=== PATIENT | male | born 1945 | race Caucasian/White ===

== ENCOUNTER 2018-11-02 08:08 | Observation (INO) | payer MEDICARE, OTHER ==
[~2018-11-02] VITALS: Ht 167.6 cm; Wt 81.7 kg
[~2018-11-02 08:08] MED LIST: ACET500 PO; ALBU90OI INH; ALBU90OI61 INH; AMLO10 PO; BUDE6HFA; BUPR100ER PO; CEPH500 PO; CLON.1 PO; DABI150C PO; DILT120 PO; DILT120ERA PO; DILTIAZEM 24HR240 M1 PO; FAMO40 PO; FLUSAL115 INH; FLUSAL2505 INH; FURO20 PO; FURO40 PO; GLIP5 PO; HYDCHL12.5 PO; HYDCHL25 PO; JARDIANCE25 MG PO; K-Tab10 MEQ PO; KETO15TC; Lasix40 MG PO; Lopressor 25 mg25 MG PO; METF500 PO; METF500C; METO50 PO; MONT10T PO; POTA10T PO; POTCHL10ER PO; PRAV20 PO; RANI150 PO; SAXA2.5T PO; TIOT18; VALS80 PO; VALSARTAN-HCTZ1 EAC1 PO; WARF5 PO
[2018-11-02 09:05] LABS: BASOPHILS ABSOLUTE AUTO 0.05 K/mm3 (0.00-0.23); BASOPHILS PERCENT AUTO 1 % (0-2); EOSINOPHILS ABSOLUTE AUTO 0.15 K/mm3 (0.00-0.68); EOSINOPHILS PERCENT AUTO 2 % (0-6); Hematocrit 47.3 % (37.0-53.0); Hemoglobin 15.8 g/dL (13.5-17.5); IMMATURE GRAN ABSOLUTE AUTO 0.02 K/mm3 (0.00-0.10); IMMATURE GRAN PERCENT AUTO 0 % (0-1); LYMPHOCYTES PERCENT AUTO 19 % (21-46); MONOCYTES ABSOLUTE AUTO 0.88 K/mm3 (0.16-1.47); MONOCYTES PERCENT AUTO 10 % (4-13); Mean Corpuscular HGB 29.7 pg (26.0-34.0); Mean Corpuscular HGB Conc 33.4 g/dL (31.5-36.5); Mean Corpuscular Volume 89 fL (80-100); Mean Platelet Volume 11.9 fL (9.1-12.4); NEUTROPHILS ABSOLUTE AUTO 6.25 K/mm3 (1.96-9.15); NEUTROPHILS PERCENT AUTO 69 % (41-73); Platelet Count 222 K/mm3 (150-400); RDW Coefficient Variation 14.2 % (11.7-14.2); RDW Standard Deviation 45.8 fL (35.1-46.3); Red Blood Cell Count 5.32 M/mm3 (4.30-5.90); White Blood Cell Count 9.05 K/mm3 (4.00-11.30)
[2018-11-02 09:27] LABS: Alanine Aminotransfer (ALT/SGP 18 U/L (12-78); Albumin, Blood 3.7 g/dL (3.4-5.0); Albumin/Globulin Ratio 0.9 (0.8-1.8); Alk Phos 99 U/L (50-136); Anion Gap 6 mmol/L (6-16); Aspartate Aminotrans (AST/SGOT 12 U/L (12-37); Blood Urea Nitrogen 18 mg/dL (8-24); Bun/Creatinine Ratio 16.5 (12.0-20.0); CO2, Blood 28 mmol/L (21-32); Calcium, Blood 8.7 mg/dL (8.5-10.1); Chloride, Blood 104 mmol/L (98-108); Creatinine, Blood 1.09 mg/dL (0.60-1.20); Glomerular Filtration Rate >60 (60-); Glucose, Blood 146 mg/dL (70-99); Potassium, Blood 3.9 mmol/L (3.5-5.5); Sodium, Blood 138 mmol/L (136-145); Total Protein, Blood 7.7 g/dL (6.4-8.2); Troponin I <0.015 ng/mL (0.000-0.040)
[2018-11-02] MEDS ORDERED: AMLO10 PO (17:57)
[2018-11-02] MEDS ORDERED: ATOR20 PO (17:59)
[2018-11-02] MEDS ORDERED: TAMS.4ER PO (18:00)
[2018-11-02] MEDS ORDERED: LOSA50 PO (18:02)
[2018-11-02] MEDS ORDERED: TUDORZA PRESS400 MCG INH (18:05)
[2018-11-03 07:29] LABS: BASOPHILS ABSOLUTE AUTO 0.06 K/mm3 (0.00-0.23); BASOPHILS PERCENT AUTO 1 % (0-2); EOSINOPHILS ABSOLUTE AUTO 0.18 K/mm3 (0.00-0.68); EOSINOPHILS PERCENT AUTO 2 % (0-6); Hematocrit 47.9 % (37.0-53.0); Hemoglobin 15.5 g/dL (13.5-17.5); IMMATURE GRAN ABSOLUTE AUTO 0.04 K/mm3 (0.00-0.10); IMMATURE GRAN PERCENT AUTO 0 % (0-1); LYMPHOCYTES ABSOLUTE AUTO 1.99 K/mm3 (0.84-5.20); LYMPHOCYTES PERCENT AUTO 17 % (21-46); MONOCYTES ABSOLUTE AUTO 0.89 K/mm3 (0.16-1.47); MONOCYTES PERCENT AUTO 8 % (4-13); Mean Corpuscular HGB 29.4 pg (26.0-34.0); Mean Corpuscular HGB Conc 32.4 g/dL (31.5-36.5); Mean Corpuscular Volume 91 fL (80-100); Mean Platelet Volume 11.6 fL (9.1-12.4); NEUTROPHILS ABSOLUTE AUTO 8.53 K/mm3 (1.96-9.15); NEUTROPHILS PERCENT AUTO 73 % (41-73); Platelet Count 222 K/mm3 (150-400); RDW Coefficient Variation 14.3 % (11.7-14.2); RDW Standard Deviation 47.3 fL (35.1-46.3); Red Blood Cell Count 5.27 M/mm3 (4.30-5.90); White Blood Cell Count 11.69 K/mm3 (4.00-11.30)
[2018-11-03 08:03] LABS: Bun/Creatinine Ratio 19.5 (12.0-20.0); Calcium, Blood 8.9 mg/dL (8.5-10.1); Creatinine, Blood 1.33 mg/dL (0.60-1.20); Magnesium, Blood 2.2 mg/dL (1.6-2.4); Potassium, Blood 4.7 mmol/L (3.5-5.5)
[2018-11-03] MEDS ORDERED: LOSA50 PO (15:51)
== END 2018-11-03 16:15 | disposition home or self-care (01) ==
LOC: ER 08:08 → MEDS 08:09 → SURS 13:25
PROVIDERS: Emergency Medicine; Student in an Organized Health Care Education/Training Program
DX: R07.89 Other chest pain (principal); I48.91 Unspecified atrial fibrillation; E11.9 Type 2 diabetes mellitus without complications; I10 Essential (primary) hypertension; R20.2 Paresthesia of skin; Z79.899 Other long term (current) drug therapy; Z87.891 Personal history of nicotine dependence
CPT/HCPCS: 36415; 70450; 71046; 80048; 80053; 82947; 83690; 83735; 83880; 84443; 84484; 85025; 93005; 93010; 94640; 96374; 99285-25; A9270; J1815; J2405

== ENCOUNTER 2019-05-13 01:16 | Observation (INO) | payer MEDICARE, OTHER ==
[~2019-05-13] VITALS: Ht 172.7 cm; Wt 116.1 kg
[~2019-05-13 01:16] MED LIST changes: +ATOR20 PO; +LOSA50 PO; +LOSARTAN-HCTZ1 EACH; -METF500C; +METF500C PO; +TAMS.4ER PO; +TUDORZA PRESS400 MCG INH; +Zantac150 MG PO
[2019-05-13] MEDS ORDERED: FLUT1DIS2 INH (01:33)
[2019-05-13] MEDS ORDERED: Azor 10-40 MG1 EACH (01:34)
[2019-05-13] MEDS ORDERED: DILT120 PO (01:35)
[2019-05-13] MEDS ORDERED: BUPR100 PO (01:35)
[2019-05-13] MEDS ORDERED: ATOR10 PO (01:35)
[2019-05-13] MEDS ORDERED: TAMS.4ER PO (01:36)
[2019-05-13] MEDS ORDERED: POTA10T PO (01:37)
[2019-05-13] MEDS ORDERED: JARDIANCE25 MG PO (01:37)
[2019-05-13] MEDS ORDERED: FURO40 PO (01:37)
[2019-05-13] MEDS ORDERED: GLIP5 PO (01:37)
[2019-05-13 01:38] LABS: BASOPHILS ABSOLUTE AUTO 0.08 K/mm3 (0.00-0.23); BASOPHILS PERCENT AUTO 1 % (0-2); EOSINOPHILS ABSOLUTE AUTO 0.21 K/mm3 (0.00-0.68); EOSINOPHILS PERCENT AUTO 2 % (0-6); Hematocrit 49.7 % (37.0-53.0); Hemoglobin 16.7 g/dL (13.5-17.5); IMMATURE GRAN ABSOLUTE AUTO 0.03 K/mm3 (0.00-0.10); IMMATURE GRAN PERCENT AUTO 0 % (0-1); LYMPHOCYTES ABSOLUTE AUTO 2.31 K/mm3 (0.84-5.20); LYMPHOCYTES PERCENT AUTO 22 % (21-46); MONOCYTES ABSOLUTE AUTO 0.74 K/mm3 (0.16-1.47); MONOCYTES PERCENT AUTO 7 % (4-13); Mean Corpuscular HGB 30.8 pg (26.0-34.0); Mean Corpuscular HGB Conc 33.6 g/dL (31.5-36.5); Mean Corpuscular Volume 92 fL (80-100); NEUTROPHILS ABSOLUTE AUTO 7.01 K/mm3 (1.96-9.15); NEUTROPHILS PERCENT AUTO 68 % (41-73); RDW Coefficient Variation 13.2 % (11.7-14.2); RDW Standard Deviation 44.9 fL (35.1-46.3); Red Blood Cell Count 5.42 M/mm3 (4.30-5.90); White Blood Cell Count 10.38 K/mm3 (4.00-11.30)
[2019-05-13] MEDS ORDERED: LOSA25 PO (01:38)
[2019-05-13] MEDS ORDERED: MONT10T PO (01:38)
[2019-05-13] MEDS ORDERED: METF500 PO (01:38)
[2019-05-13] MEDS ORDERED: DABI150C PO (01:39)
[2019-05-13] MEDS ORDERED: SAXA2.5T PO (01:39)
[2019-05-13] MEDS ORDERED: ALBU90OI61 INH (01:39)
[2019-05-13] MEDS ORDERED: TUDORZA PRESS400 MCG IH (01:39)
[2019-05-13 01:42] LABS: Mean Platelet Volume 13.1 fL (9.1-12.4); Platelet Count 98 K/mm3 (150-400)
[2019-05-13 02:00] LABS: Alanine Aminotransfer (ALT/SGP 29 U/L (12-78); Albumin, Blood 3.6 g/dL (3.4-5.0); Albumin/Globulin Ratio 1.1 (0.8-1.8); Alk Phos 85 U/L (50-136); Anion Gap 8 mmol/L (6-16); Aspartate Aminotrans (AST/SGOT 40 U/L (12-37); Bilirubin, Total 1.4 mg/dL (0.1-1.0); Blood Urea Nitrogen 18 mg/dL (8-24); Bun/Creatinine Ratio 17.8 (12.0-20.0); CO2, Blood 25 mmol/L (21-32); Calcium, Blood 8.3 mg/dL (8.5-10.1); Chloride, Blood 107 mmol/L (98-108); Creatinine, Blood 1.01 mg/dL (0.60-1.20); Globulin, Blood 3.4 g/dL (2.2-4.0); Glomerular Filtration Rate >60 (60-); Glucose, Blood 122 mg/dL (70-99); Magnesium, Blood 2.2 mg/dL (1.6-2.4); Potassium, Blood 4.3 mmol/L (3.5-5.5); Sodium, Blood 140 mmol/L (136-145); Troponin I <0.015 ng/mL (0.000-0.040)
[2019-05-13 02:01] LABS: International Normalized Ratio 1.06; Prothrombin Time Results 11.2 Sec (9.7-11.5)
[2019-05-13 05:12] LABS: Hematocrit 48.2 % (37.0-53.0); Mean Corpuscular HGB 30.6 pg (26.0-34.0); Mean Corpuscular HGB Conc 33.2 g/dL (31.5-36.5); Mean Corpuscular Volume 92 fL (80-100); Mean Platelet Volume 11.6 fL (9.1-12.4); Platelet Count 200 K/mm3 (150-400); RDW Coefficient Variation 13.1 % (11.7-14.2); RDW Standard Deviation 44.8 fL (35.1-46.3); Red Blood Cell Count 5.23 M/mm3 (4.30-5.90); White Blood Cell Count 11.34 K/mm3 (4.00-11.30)
[2019-05-13 05:35] LABS: Alanine Aminotransfer (ALT/SGP 23 U/L (12-78); Albumin, Blood 3.5 g/dL (3.4-5.0); Albumin/Globulin Ratio 1.1 (0.8-1.8); Alk Phos 83 U/L (50-136); Anion Gap 6 mmol/L (6-16); Aspartate Aminotrans (AST/SGOT 17 U/L (12-37); Bilirubin, Total 1.3 mg/dL (0.1-1.0); Blood Urea Nitrogen 16 mg/dL (8-24); Bun/Creatinine Ratio 15.2 (12.0-20.0); CO2, Blood 29 mmol/L (21-32); Calcium, Blood 8.1 mg/dL (8.5-10.1); Chloride, Blood 106 mmol/L (98-108); Creatinine, Blood 1.05 mg/dL (0.60-1.20); Globulin, Blood 3.3 g/dL (2.2-4.0); Glomerular Filtration Rate >60 (60-); Glucose, Blood 178 mg/dL (70-99); Potassium, Blood 3.4 mmol/L (3.5-5.5); Sodium, Blood 141 mmol/L (136-145); Total Protein, Blood 6.8 g/dL (6.4-8.2)
--- NOTE | 2019-05-13 18:07 | NUR ---
SHIFT SUMMARY. 1220 PT ADMITTED TO MEDICAL FLOOR. A&OX4, LESLEE, GIPS EQUAL. PT REPORTS TO HAVE DECREASED SENSATION TO L HAND. OBSERVED PT WITH DECREASED DEXTERITY AND SLOWER INITIAL REACTION WITH L HAND. BLE WITHOUT DEFICIT OBSERVED. PT AMBULATES WITH SBA FOR SAFETY. FACIAL SYMETRICAL, NO DROOP. FAMILY AT BEDSIDE. PT DENIES SOB, N/V, OR PAIN.
[2019-05-14 05:02] LABS: Hematocrit 46.5 % (37.0-53.0); Hemoglobin 15.4 g/dL (13.5-17.5); Mean Corpuscular HGB 30.6 pg (26.0-34.0); Mean Corpuscular HGB Conc 33.1 g/dL (31.5-36.5); Mean Corpuscular Volume 92 fL (80-100); Mean Platelet Volume 12.2 fL (9.1-12.4); Platelet Count 186 K/mm3 (150-400); RDW Coefficient Variation 13.2 % (11.7-14.2); RDW Standard Deviation 44.8 fL (35.1-46.3); Red Blood Cell Count 5.03 M/mm3 (4.30-5.90)
[2019-05-14 05:31] LABS: Anion Gap 5 mmol/L (6-16); Blood Urea Nitrogen 19 mg/dL (8-24); Bun/Creatinine Ratio 19.2 (12.0-20.0); CHOL/HDL RATIO 3.3; CO2, Blood 29 mmol/L (21-32); Calcium, Blood 8.4 mg/dL (8.5-10.1); Chloride, Blood 107 mmol/L (98-108); Cholesterol 119 mg/dL (50-200); Creatinine, Blood 0.99 mg/dL (0.60-1.20); Glomerular Filtration Rate >60 (60-); Glucose, Blood 137 mg/dL (70-99); HDL Cholesterol 36 mg/dL (>39); LDL/HDL RATIO 1.7; Low Density Lipoprotein Chol 60 mg/dL (0-110); Potassium, Blood 3.8 mmol/L (3.5-5.5); Sodium, Blood 141 mmol/L (136-145); Triglycerides 116 mg/dL (30-160); Very Low Density Lipoprot Chol 23 mg/dL (6-32)
[2019-05-14 05:32] LABS: BASOPHILS PERCENT MAN 0 % (0-2); EOSINOPHILS ABSOLUTE MAN 0.17 K/mm3 (0.00-0.68); EOSINOPHILS PERCENT MAN 2 % (0-6); LYMPHOCYTES ABSOLUTE MAN 1.89 K/mm3 (0.84-5.20); LYMPHOCYTES PERCENT MAN 22 % (21-46); MONOCYTES ABSOLUTE MAN 0.86 K/mm3 (0.16-1.47); MONOCYTES PERCENT MAN 10 % (4-13); NEUTROPHILS ABSOLUTE MAN 5.67 K/mm3 (1.96-9.15); SEG NEUTROPHILS PERCENT MAN 66 % (41-73); TOTAL CELLS COUNTED 100
--- NOTE | 2019-05-14 05:42 | NUR ---
SHIFT SUMMARY PT SLEPT WELL T/O NIGHT. AOX4. VSS. REPORTS SHARP 8-10/10 R LEG PAIN THAT IS IRRITATED W/WALKING, MEDICATED 2X W/TYLENOL & APPLIED HEAT PAD. DENIES N/V/D OR SOB. 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 SBA W/AMBULATION. 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 CALL LIGHT IN REACH & I WILL CONTINUE TO MONITOR.
[2019-05-14] MEDS ORDERED: ASPI325 PO (13:53)
[2019-05-14] MEDS ORDERED: AMLO10 PO (13:54)
[2019-05-14] MEDS ORDERED: Norco 5-325 Ta1 EACH PO (13:54)
[2019-05-14] MEDS ORDERED: LOSARTAN-HCTZ1 EACH PO (13:55)
--- NOTE | 2019-05-14 15:05 | NUR ---
DISCHARGE DISCHARGE MEDICATIONS AND INSTRUCTIONS EXPLAINED TO PATIENT. PATIENT STATED UNDERSTANDING. IV REMOVED WITHOUT DIFFICULTY. BELONGINGS WITH PATIENT. PATIENT TRANSFERRED TO PRIVATE VEHICLE VIA WHEELCHAIR.
--- NOTE | 2019-05-21 13:52 | NUR ---
ON 05/13/19 THIS RN MISTAKENLY PUT THE WR[facility] PHYSICIAN PNEUMONIC FOR A TRAY NOW ORDER. THE CORRECT PHYSICIAN WOULD HAVE BEEN DR. MORALES, NOT DR. CATALAN.
== END 2019-05-14 15:08 | disposition home or self-care (01) ==
LOC: ER 01:16 → ERHOLD 01:17 → MEDS 12:21
PROVIDERS: Emergency Medicine; Family Medicine; ADMIT Internal Medicine
DX: I63.9 Cerebral infarction, unspecified (principal); I35.1 Nonrheumatic aortic (valve) insufficiency; M51.16 Intervertebral disc disorders with radiculopathy, lumbar region; D69.6 Thrombocytopenia, unspecified; I11.0 Hypertensive heart disease with heart failure; I50.9 Heart failure, unspecified; E11.9 Type 2 diabetes mellitus without complications; I48.91 Unspecified atrial fibrillation; J44.9 Chronic obstructive pulmonary disease, unspecified; F17.200 Nicotine dependence, unspecified, uncomplicated; Z79.899 Other long term (current) drug therapy; Z79.84 Long term (current) use of oral hypoglycemic drugs
CPT/HCPCS: 36415; 70450; 70496; 70498; 80048; 80053; 80061; 82947; 83735; 84484; 85007; 85025; 85027; 85610; 85730; 93005; 93010; 93306; 96361; 96374-59; 99285-25; A9270; A9270-GY; G0378; G0480; J2405; J7030; Q9967

== ENCOUNTER → 2019-10-09 | Outpatient (CLI) | payer MEDICARE, OTHER ==
[~2019-10-09] MED LIST changes: +ASPI325 PO; +ATOR10 PO; +Azor 10-40 MG1 EACH; +BUPR100 PO; +FLUT1DIS2 INH; +LOSA25 PO; +LOSARTAN-HCTZ1 EACH PO; +Norco 5-325 Ta1 EACH PO; +TUDORZA PRESS400 MCG IH
[2019-10-09 12:06] LABS: BASOPHILS ABSOLUTE AUTO 0.06 K/mm3 (0.00-0.23); BASOPHILS PERCENT AUTO 1 % (0-2); EOSINOPHILS ABSOLUTE AUTO 0.12 K/mm3 (0.00-0.68); EOSINOPHILS PERCENT AUTO 2 % (0-6); Hematocrit 44.4 % (37.0-53.0); Hemoglobin 14.6 g/dL (13.5-17.5); IMMATURE GRAN ABSOLUTE AUTO 0.02 K/mm3 (0.00-0.10); IMMATURE GRAN PERCENT AUTO 0 % (0-1); LYMPHOCYTES ABSOLUTE AUTO 1.53 K/mm3 (0.84-5.20); LYMPHOCYTES PERCENT AUTO 20 % (21-46); MONOCYTES ABSOLUTE AUTO 0.55 K/mm3 (0.16-1.47); MONOCYTES PERCENT AUTO 7 % (4-13); Mean Corpuscular HGB 30.1 pg (26.0-34.0); Mean Corpuscular HGB Conc 32.9 g/dL (31.5-36.5); Mean Corpuscular Volume 92 fL (80-100); Mean Platelet Volume 12.2 fL (9.1-12.4); NEUTROPHILS PERCENT AUTO 70 % (41-73); Platelet Count 202 K/mm3 (150-400); RDW Coefficient Variation 13.2 % (11.7-14.2); RDW Standard Deviation 44.3 fL (35.1-46.3); Red Blood Cell Count 4.85 M/mm3 (4.30-5.90); White Blood Cell Count 7.68 K/mm3 (4.00-11.30)
[2019-10-09 12:24] LABS: Alanine Aminotransfer (ALT/SGP 20 U/L (12-78); Albumin, Blood 3.4 g/dL (3.4-5.0); Albumin/Globulin Ratio 0.9 (0.8-1.8); Alk Phos 92 U/L (40-126); Anion Gap 8 mmol/L (6-16); Aspartate Aminotrans (AST/SGOT 13 U/L (12-37); Bilirubin, Total 1.1 mg/dL (0.1-1.0); Blood Urea Nitrogen 21 mg/dL (8-24); Bun/Creatinine Ratio 13.6 (12.0-20.0); CO2, Blood 30 mmol/L (21-32); Calcium, Blood 8.5 mg/dL (8.5-10.1); Chloride, Blood 103 mmol/L (98-108); Creatinine, Blood 1.54 mg/dL (0.60-1.20); Globulin, Blood 3.6 g/dL (2.2-4.0); Glomerular Filtration Rate 45 (60-); Glucose, Blood 250 mg/dL (70-99); Potassium, Blood 3.9 mmol/L (3.5-5.5); Sodium, Blood 141 mmol/L (136-145)
[2019-10-09 12:25] LABS: Troponin I <0.017 ng/mL (0.000-0.040)
== END ==
LOC: LAB SHORT 12:01 → LAB EV 12:01
PROVIDERS: Physician Assistant
DX: R07.9 Chest pain, unspecified (principal); R53.83 Other fatigue
CPT/HCPCS: 80053; 84484; 85025; 85379

== ENCOUNTER → 2020-01-07 | Outpatient (CLI) | payer MEDICARE, OTHER ==
[~2020-01-07] MED LIST changes: +HYDR1TAB94 PO; +IRBESARTAN-HCT1 EAC1 PO; +ONDA4ODT MM
[2020-01-07 18:34] LABS: BASOPHILS ABSOLUTE AUTO 0.06 K/mm3 (0.00-0.23); BASOPHILS PERCENT AUTO 0 % (0-2); EOSINOPHILS ABSOLUTE AUTO 0.08 K/mm3 (0.00-0.68); EOSINOPHILS PERCENT AUTO 1 % (0-6); Hematocrit 46.3 % (37.0-53.0); Hemoglobin 15.5 g/dL (13.5-17.5); IMMATURE GRAN ABSOLUTE AUTO 0.05 K/mm3 (0.00-0.10); IMMATURE GRAN PERCENT AUTO 0 % (0-1); LYMPHOCYTES ABSOLUTE AUTO 1.07 K/mm3 (0.84-5.20); LYMPHOCYTES PERCENT AUTO 7 % (21-46); MONOCYTES ABSOLUTE AUTO 1.01 K/mm3 (0.16-1.47); MONOCYTES PERCENT AUTO 7 % (4-13); Mean Corpuscular HGB Conc 33.5 g/dL (31.5-36.5); Mean Corpuscular Volume 90 fL (80-100); Mean Platelet Volume 12.3 fL (9.1-12.4); NEUTROPHILS ABSOLUTE AUTO 12.24 K/mm3 (1.96-9.15); NEUTROPHILS PERCENT AUTO 84 % (41-73); Platelet Count 165 K/mm3 (150-400); RDW Coefficient Variation 13.7 % (11.7-14.2); RDW Standard Deviation 45.3 fL (35.1-46.3); Red Blood Cell Count 5.16 M/mm3 (4.30-5.90); White Blood Cell Count 14.51 K/mm3 (4.00-11.30)
[2020-01-07 18:46] LABS: Alanine Aminotransfer (ALT/SGP 25 U/L (12-78); Albumin, Blood 3.3 g/dL (3.4-5.0); Albumin/Globulin Ratio 0.9 (0.8-1.8); Alk Phos 113 U/L (40-126); Anion Gap 8 mmol/L (6-16); Aspartate Aminotrans (AST/SGOT 20 U/L (12-37); Blood Urea Nitrogen 13 mg/dL (8-24); Bun/Creatinine Ratio 11.6 (12.0-20.0); CO2, Blood 29 mmol/L (21-32); Calcium, Blood 8.7 mg/dL (8.5-10.1); Chloride, Blood 102 mmol/L (98-108); Creatinine, Blood 1.12 mg/dL (0.60-1.20); Globulin, Blood 3.7 g/dL (2.2-4.0); Glomerular Filtration Rate >60 (60-); Glucose, Blood 368 mg/dL (70-99); Sodium, Blood 139 mmol/L (136-145)
== END | disposition home or self-care (01) ==
LOC: LAB EV 18:30 → LAB SHORT 18:30
PROVIDERS: Physician Assistant
DX: R10.9 Unspecified abdominal pain (principal)
CPT/HCPCS: 80053; 83690; 85025

== ENCOUNTER 2020-01-10 14:24 | Emergency (ER) | payer MEDICARE, OTHER ==
[~2020-01-10] VITALS: Ht 177.8 cm; Wt 115.7 kg
[~2020-01-10 14:24] MED LIST changes: -HYDR1TAB94 PO
[2020-01-10 15:09] LABS: BASOPHILS ABSOLUTE AUTO 0.03 K/mm3 (0.00-0.23); BASOPHILS PERCENT AUTO 0 % (0-2); EOSINOPHILS PERCENT AUTO 1 % (0-6); Hematocrit 44.5 % (37.0-53.0); Hemoglobin 14.6 g/dL (13.5-17.5); IMMATURE GRAN ABSOLUTE AUTO 0.03 K/mm3 (0.00-0.10); IMMATURE GRAN PERCENT AUTO 0 % (0-1); LYMPHOCYTES ABSOLUTE AUTO 1.35 K/mm3 (0.84-5.20); LYMPHOCYTES PERCENT AUTO 12 % (21-46); MONOCYTES ABSOLUTE AUTO 0.73 K/mm3 (0.16-1.47); MONOCYTES PERCENT AUTO 6 % (4-13); Mean Corpuscular HGB 29.8 pg (26.0-34.0); Mean Corpuscular HGB Conc 32.8 g/dL (31.5-36.5); Mean Corpuscular Volume 91 fL (80-100); Mean Platelet Volume 12.3 fL (9.1-12.4); NEUTROPHILS ABSOLUTE AUTO 9.39 K/mm3 (1.96-9.15); NEUTROPHILS PERCENT AUTO 81 % (41-73); Platelet Count 151 K/mm3 (150-400); RDW Coefficient Variation 13.5 % (11.7-14.2); RDW Standard Deviation 45.3 fL (35.1-46.3); White Blood Cell Count 11.63 K/mm3 (4.00-11.30)
[2020-01-10 15:28] LABS: Alanine Aminotransfer (ALT/SGP 20 U/L (12-78); Albumin, Blood 3.1 g/dL (3.4-5.0); Albumin/Globulin Ratio 0.9 (0.8-1.8); Alk Phos 99 U/L (50-136); Anion Gap 5 mmol/L (6-16); Aspartate Aminotrans (AST/SGOT 14 U/L (12-37); Bilirubin, Total 1.4 mg/dL (0.1-1.0); Blood Urea Nitrogen 16 mg/dL (8-24); Bun/Creatinine Ratio 17.2 (12.0-20.0); CO2, Blood 30 mmol/L (21-32); Calcium, Blood 8.5 mg/dL (8.5-10.1); Chloride, Blood 103 mmol/L (98-108); Creatinine, Blood 0.93 mg/dL (0.60-1.20); Globulin, Blood 3.6 g/dL (2.2-4.0); Glomerular Filtration Rate >60 (60-); Glucose, Blood 233 mg/dL (70-99); Potassium, Blood 3.7 mmol/L (3.5-5.5); Sodium, Blood 138 mmol/L (136-145); Total Protein, Blood 6.7 g/dL (6.4-8.2)
[2020-01-10 17:24] LABS: Source, Urine Clean Catch
[2020-01-10 17:29] LABS: Bilirubin, Urine Neg (Neg); Blood, Urine Neg (Neg); Glucose Qualitative, Urine 2+ (Neg); Ketones, Urine Neg (Neg); Leukocyte Esterase, Urine 1+ (Neg); Nitrite, Urine Neg (Neg); Protein, Urine 2+ (Neg); Urobilinogen, Urine NORM (Normal)
[2020-01-10 17:37] LABS: Appearance, Urine Clear (Clear); Color, Urine Yellow (P-Yellow)
[2020-01-10 17:38] LABS: Bacteria Rare /hpf; Hyaline Casts 0-2 /lpf (0-2); Red Blood Cells, Urine 0-2 /hpf (0-2); Squamous Epithelial Cells Few /hpf (Few)
[2020-01-10] MEDS ORDERED: HYDR1TAB94 PO (17:51)
== END 2020-01-10 18:15 | disposition home or self-care (01) ==
LOC: ER 14:24
PROVIDERS: Physician Assistant
DX: D73.5 Infarction of spleen (principal); I11.0 Hypertensive heart disease with heart failure; I50.9 Heart failure, unspecified; I48.91 Unspecified atrial fibrillation; E11.9 Type 2 diabetes mellitus without complications; E78.5 Hyperlipidemia, unspecified; J45.909 Unspecified asthma, uncomplicated; Z79.84 Long term (current) use of oral hypoglycemic drugs; Z79.82 Long term (current) use of aspirin; Z79.899 Other long term (current) drug therapy; Z79.51 Long term (current) use of inhaled steroids; Z87.891 Personal history of nicotine dependence
CPT/HCPCS: 36415; 74177; 80053; 81001; 83690; 85025; 87086; 93005; 93010; 99284-25; Q9967

== ENCOUNTER 2020-07-09 12:12 | Day surgery (SDC) | payer MEDICARE, OTHER ==
[~2020-07-09] VITALS: Ht 177.8 cm; Wt 112.3 kg
[~2020-07-09 12:12] MED LIST changes: +DILTIAZEM 24HR240 M4 PO; +DOCU100 PO; +ELIQUIS5 MG PO; +FLUT1DIS8 INH; +GLIP5ER PO; +GLUCOPHAGE1000 M1 PO; +HYDR1TAB94 PO; +IRBESARTAN-HCT1 EAC2 PO; +Klor-Con 1010 MEQ PO; +OMEP20ER PO; +ONGLYZA5 MG PO; +PROAIR DIGIHAL90 MCG; +TIOT18 INH
[2020-07-09] MEDS ORDERED: DABI150C (13:00)
== END 2020-07-09 14:48 | disposition home or self-care (01) ==
LOC: ORSCSDS 12:12
PROVIDERS: Student in an Organized Health Care Education/Training Program
PROC: 0DB98ZX Excision of Duodenum, Via Natural or Artificial Opening Endoscopic, Diagnostic (ICD-10-PCS; principal; 2020-07-09 13:30)
PROC: 0DBN8ZX Excision of Sigmoid Colon, Via Natural or Artificial Opening Endoscopic, Diagnostic (ICD-10-PCS; principal; 2020-07-09 13:30)
PROC: 0DB68ZX Excision of Stomach, Via Natural or Artificial Opening Endoscopic, Diagnostic (ICD-10-PCS; principal; 2020-07-09 13:30)
PROC: 0DBK8ZX Excision of Ascending Colon, Via Natural or Artificial Opening Endoscopic, Diagnostic (ICD-10-PCS; principal; 2020-07-09 13:30)
PROC: 0DBL8ZX Excision of Transverse Colon, Via Natural or Artificial Opening Endoscopic, Diagnostic (ICD-10-PCS; principal; 2020-07-09 13:30)
DX: K74.60 Unspecified cirrhosis of liver (principal); R19.5 Other fecal abnormalities; R15.0 Incomplete defecation; K31.7 Polyp of stomach and duodenum; K22.70 Barrett's esophagus without dysplasia; D12.2 Benign neoplasm of ascending colon; D12.3 Benign neoplasm of transverse colon; K63.5 Polyp of colon; K31.819 Angiodysplasia of stomach and duodenum without bleeding; Z86.010 Personal history of colon polyps; K29.70 Gastritis, unspecified, without bleeding; K57.30 Diverticulosis of large intestine without perforation or abscess without bleeding; K64.8 Other hemorrhoids; I10 Essential (primary) hypertension; I48.91 Unspecified atrial fibrillation; Z79.01 Long term (current) use of anticoagulants; J44.9 Chronic obstructive pulmonary disease, unspecified; G47.33 Obstructive sleep apnea (adult) (pediatric); Z87.891 Personal history of nicotine dependence; E11.9 Type 2 diabetes mellitus without complications; Z99.81 Dependence on supplemental oxygen; Z86.73 Personal history of transient ischemic attack (TIA), and cerebral infarction without residual deficits; Z79.899 Other long term (current) drug therapy; Z79.84 Long term (current) use of oral hypoglycemic drugs
CPT/HCPCS: 82947; 88305; 88341; 88342; J2704; J7120

== ENCOUNTER 2022-03-14 12:07 | Day surgery (SDC) | payer MEDICARE, OTHER ==
[~2022-03-14] VITALS: Ht 177.8 cm; Wt 101.4 kg
[~2022-03-14 12:07] MED LIST changes: +AVALIDE 300-121 EACH PO; +CHLO25B PO; +DABI150C; +ELIQUIS5 M2 PO; +GABA100 PO; +Isosorbide Mono30 MG PO; +METO25ER PO; +MINIPRESS2 M1 PO; +PEPCID40 MG PO; -PROAIR DIGIHAL90 MCG; +PROAIR DIGIHAL90 MCG INH; +SYMBICORT 80-10.2 GM INH; +ZESTRIL40 M1 PO
== END 2022-03-14 14:04 | disposition home or self-care (01) ==
LOC: ORSCSDS 12:07
PROVIDERS: Student in an Organized Health Care Education/Training Program
PROC: 0DBK8ZX Excision of Ascending Colon, Via Natural or Artificial Opening Endoscopic, Diagnostic (ICD-10-PCS; principal; 2022-03-14 13:30)
DX: Z12.11 Encounter for screening for malignant neoplasm of colon (principal); Z86.010 Personal history of colon polyps; D12.2 Benign neoplasm of ascending colon; K57.30 Diverticulosis of large intestine without perforation or abscess without bleeding; K64.8 Other hemorrhoids; I48.20 Chronic atrial fibrillation, unspecified; Z79.01 Long term (current) use of anticoagulants; E78.5 Hyperlipidemia, unspecified; E03.9 Hypothyroidism, unspecified; J45.909 Unspecified asthma, uncomplicated; Z79.899 Other long term (current) drug therapy; Z79.84 Long term (current) use of oral hypoglycemic drugs; Z87.891 Personal history of nicotine dependence; J44.9 Chronic obstructive pulmonary disease, unspecified; E11.22 Type 2 diabetes mellitus with diabetic chronic kidney disease; I12.9 Hypertensive chronic kidney disease with stage 1 through stage 4 chronic kidney disease, or unspecified chronic kidney disease; N18.9 Chronic kidney disease, unspecified; Z86.73 Personal history of transient ischemic attack (TIA), and cerebral infarction without residual deficits
CPT/HCPCS: 82947; 88305; J0330; J0461; J2405; J2704; J7120

== ENCOUNTER 2023-01-05 06:27 | Day surgery (SDC) | payer OTHER ==
[~2023-01-05] VITALS: Ht 180.3 cm; Wt 84.2 kg
[~2023-01-05 06:27] MED LIST changes: +DEXA4 PO
--- NOTE | 2023-01-05 06:53 | NUR ---
01/05/23 0653 MITCHELL QUEVEDO T: [id number] P: 0651 ENGAGED IN PT PRE OP TEACHING. CALL LIGHT WITHIN REACH
--- NOTE | 2023-01-05 09:01 | NUR ---
01/05/23 0901 Reilly Jones PT REPORTED FEELING OF SOMETHING CAUGHT IN EYE. HE REFUSED TYLENOL AND WAS ADVISED TO TAKE OTC PAIN RELIEVER IF NEEDED. DR. LENZ INFORMED OF IRREGULAR HEART RATE AND APPROVED DISCHARGE WITH THAT CONDITION.
== END 2023-01-05 08:55 | disposition home or self-care (01) ==
LOC: ORSCSDS 06:27
PROVIDERS: Ophthalmology
PROC: 08DJ3ZZ Extraction of Right Lens, Percutaneous Approach (ICD-10-PCS; principal; 2023-01-05 08:00)
DX: E11.36 Type 2 diabetes mellitus with diabetic cataract (principal); H25.11 Age-related nuclear cataract, right eye; I48.91 Unspecified atrial fibrillation; K74.60 Unspecified cirrhosis of liver; Z99.81 Dependence on supplemental oxygen; J44.9 Chronic obstructive pulmonary disease, unspecified; E78.5 Hyperlipidemia, unspecified; E03.9 Hypothyroidism, unspecified; R06.02 Shortness of breath; K21.9 Gastro-esophageal reflux disease without esophagitis; I10 Essential (primary) hypertension; I25.10 Atherosclerotic heart disease of native coronary artery without angina pectoris; Z87.891 Personal history of nicotine dependence; Z79.01 Long term (current) use of anticoagulants; Z79.84 Long term (current) use of oral hypoglycemic drugs; Z79.85 Long-term (current) use of injectable non-insulin antidiabetic drugs; Z79.899 Other long term (current) drug therapy
CPT/HCPCS: 82947; J2001; J2250; J3010; J3301; J7040; V2632

== ENCOUNTER → 2024-01-06 | Outpatient (CLI) | payer OTHER ==
[2024-01-06 14:04] LABS: BASOPHILS ABSOLUTE AUTO 0.06 K/mm3 (0.00-0.23); BASOPHILS PERCENT AUTO 1 % (0-2); EOSINOPHILS ABSOLUTE AUTO 0.14 K/mm3 (0.00-0.68); EOSINOPHILS PERCENT AUTO 1 % (0-6); Hematocrit 48.6 % (37.0-53.0); Hemoglobin 16.4 g/dL (13.5-17.5); IMMATURE GRAN ABSOLUTE AUTO 0.02 K/mm3 (0.00-0.10); IMMATURE GRAN PERCENT AUTO 0 % (0-1); LYMPHOCYTES ABSOLUTE AUTO 1.38 K/mm3 (0.84-5.20); LYMPHOCYTES PERCENT AUTO 14 % (21-46); MONOCYTES ABSOLUTE AUTO 0.57 K/mm3 (0.16-1.47); MONOCYTES PERCENT AUTO 6 % (4-13); Mean Corpuscular HGB 31.1 pg (26.0-34.0); Mean Corpuscular HGB Conc 33.7 g/dL (31.5-36.5); Mean Corpuscular Volume 92 fL (80-100); NEUTROPHILS ABSOLUTE AUTO 7.53 K/mm3 (1.96-9.15); NEUTROPHILS PERCENT AUTO 78 % (41-73); Platelet Count 190 K/mm3 (150-400); RDW Coefficient Variation 13.3 % (11.7-14.2); RDW Standard Deviation 45.3 fL (35.1-46.3); Red Blood Cell Count 5.28 M/mm3 (4.30-5.90)
[2024-01-06 14:14] LABS: Albumin, Blood 3.5 g/dL (3.4-5.0); Bilirubin, Total 1.2 mg/dL (0.1-1.0); Bun/Creatinine Ratio 9.4 (12.0-20.0); Creatinine, Blood 1.17 mg/dL (0.60-1.20); Globulin, Blood 3.5 g/dL (2.2-4.0)
== END ==
LOC: LAB SHORT 13:58
PROVIDERS: Emergency Medicine
DX: R11.2 Nausea with vomiting, unspecified (principal)
CPT/HCPCS: 80053; 83690; 85025

== ENCOUNTER 2025-03-16 11:01 | Observation (INO) | payer OTHER, MEDICARE ==
[~2025-03-16] VITALS: Ht 180.3 cm; Wt 97.2 kg
[2025-03-16 11:51] LABS: BASOPHILS ABSOLUTE AUTO 0.06 K/mm3 (0.00-0.23); BASOPHILS PERCENT AUTO 1 % (0-2); EOSINOPHILS ABSOLUTE AUTO 0.17 K/mm3 (0.00-0.68); EOSINOPHILS PERCENT AUTO 2 % (0-6); Hematocrit 47.7 % (37.0-53.0); Hemoglobin 16.4 g/dL (13.5-17.5); IMMATURE GRAN ABSOLUTE AUTO 0.01 K/mm3 (0.00-0.10); IMMATURE GRAN PERCENT AUTO 0 % (0-1); LYMPHOCYTES ABSOLUTE AUTO 1.87 K/mm3 (0.84-5.20); LYMPHOCYTES PERCENT AUTO 23 % (21-46); MONOCYTES ABSOLUTE AUTO 0.75 K/mm3 (0.16-1.47); MONOCYTES PERCENT AUTO 9 % (4-13); Mean Corpuscular HGB 30.6 pg (26.0-34.0); Mean Corpuscular HGB Conc 34.4 g/dL (31.5-36.5); Mean Corpuscular Volume 89 fL (80-100); Mean Platelet Volume 11.6 fL (9.1-12.4); NEUTROPHILS ABSOLUTE AUTO 5.23 K/mm3 (1.96-9.15); NEUTROPHILS PERCENT AUTO 65 % (41-73); Platelet Count 226 K/mm3 (150-400); RDW Standard Deviation 42.4 fL (35.1-46.3); Red Blood Cell Count 5.36 M/mm3 (4.30-5.90); White Blood Cell Count 8.09 K/mm3 (4.00-11.30)
[2025-03-16 12:08] LABS: Albumin, Blood 3.4 g/dL (3.4-5.0); Albumin/Globulin Ratio 0.9 (0.8-1.8); Bilirubin, Total 1.5 mg/dL (0.1-1.0); Bun/Creatinine Ratio 16.6 (12.0-20.0); Calcium, Blood 9.1 mg/dL (8.5-10.1); Creatinine, Blood 0.85 mg/dL (0.60-1.20); Globulin, Blood 3.7 g/dL (2.2-4.0); Total Protein, Blood 7.1 g/dL (6.4-8.2)
[2025-03-16] MEDS ORDERED: Insulin Human Lispro 100 Units/ML 3ML Syringe SC SCH (16:30)
[2025-03-16] MEDS ORDERED: Mometasone/Formoterol MDI 100/5 mcg 13 GM INH SCH (16:40)
[2025-03-16 17:01] VITALS: BP 187/66
[2025-03-16] MEDS ORDERED: DILTIAZEM 24HR240 M3 PO (17:39)
[2025-03-16] MEDS ORDERED: CHLO25B PO (17:39)
[2025-03-16] MEDS ORDERED: LISI20 PO (17:40)
[2025-03-16] MEDS ORDERED: ZOLOFT25 MG PO (17:41)
[2025-03-16] MEDS ORDERED: HYDROCODONE-AC1 EA19 PO (17:41)
--- NOTE | 2025-03-16 18:28 | NUR ---
ADMISSION SUMMARY THE PT WAS A NEW ADMIT THIS EVENING FOR CVA. ON ER HAND OFF NIH SCALE WAS PREFORMED AND NIH SCALE WAS 5. DR. LAGUNA WAS MADE AWARE. BP NOTED WITH HYPERTENSION. PERMISSIVE HTN GOALS OF SBP 110-200. ON TELE THE PT IS AFIB 50 S-60'S W/ MULTIPLE PAUSES UNDER [address] LAGUNA MADE AWARE. SP02>93% ON RA. PT STATES HE HAS BRIANNE BUT IS NONCOMPLIANT WITH CPAP NOR DOES HE HAVE ONE. THE PT IS HEADED DOWN FOR AN MRI AT THIS TIME. HIS , SON, AND [id number] WERE AT BEDSIDE AND UPDATED ON CARE. THE PT'S SILVER COLORED EAGEL RING WAS SENT HOME WITH THE PT'S . A BEDSIDE SWALLOW EVALUATION WAS PREFORMED AND THE PT WAS COUGHING WITH REGULAR CONSISTANCY. HE WAS PLACED ON A SUPERVISED SOFT BITE SIZED DIET. SPEECH THERAPY CONSULTED. SEE NOTES FOR ANY UPDATES.
[2025-03-16 20:50] VITALS: BP 183/70
[2025-03-16] MEDS ORDERED: Prazosin HCl 1 MG Cap PO SCH (21:00)
[2025-03-16] MEDS ORDERED: Apixaban 5 MG Tab PO SCH (21:00)
[2025-03-16] MEDS ORDERED: Montelukast Sodium 10 MG Tab PO SCH (21:00)
[2025-03-17] VITALS (7 sets, daily range): BP systolic 135–184; BP diastolic 62–98
[2025-03-17 04:58] LABS: BASOPHILS ABSOLUTE AUTO 0.05 K/mm3 (0.00-0.23); BASOPHILS PERCENT AUTO 1 % (0-2); EOSINOPHILS ABSOLUTE AUTO 0.19 K/mm3 (0.00-0.68); EOSINOPHILS PERCENT AUTO 3 % (0-6); Hematocrit 46.9 % (37.0-53.0); Hemoglobin 16.2 g/dL (13.5-17.5); IMMATURE GRAN ABSOLUTE AUTO 0.02 K/mm3 (0.00-0.10); IMMATURE GRAN PERCENT AUTO 0 % (0-1); LYMPHOCYTES ABSOLUTE AUTO 1.55 K/mm3 (0.84-5.20); LYMPHOCYTES PERCENT AUTO 21 % (21-46); MONOCYTES ABSOLUTE AUTO 0.66 K/mm3 (0.16-1.47); MONOCYTES PERCENT AUTO 9 % (4-13); Mean Corpuscular HGB 31.2 pg (26.0-34.0); Mean Corpuscular HGB Conc 34.5 g/dL (31.5-36.5); Mean Corpuscular Volume 90 fL (80-100); Mean Platelet Volume 12.1 fL (9.1-12.4); NEUTROPHILS ABSOLUTE AUTO 4.79 K/mm3 (1.96-9.15); NEUTROPHILS PERCENT AUTO 66 % (41-73); Platelet Count 195 K/mm3 (150-400); RDW Coefficient Variation 12.9 % (11.7-14.2); RDW Standard Deviation 42.5 fL (35.1-46.3); White Blood Cell Count 7.26 K/mm3 (4.00-11.30)
[2025-03-17 05:17] LABS: Bun/Creatinine Ratio 16.5 (12.0-20.0); Calcium, Blood 8.6 mg/dL (8.5-10.1); Creatinine, Blood 0.91 mg/dL (0.60-1.20); Potassium, Blood 3.1 mmol/L (3.5-5.5)
--- NOTE | 2025-03-17 07:28 | NUR ---
SHIFT SUMMARY: PT IS A&OX4, PLEASANT AND APPRECIATIVE OF CARE. HTN, SYS >160, ON RA. A-FIB WITH BBB 50'S-60'S, OCCASIONAL 40'S, WITH 2 SECOND PAUSES. DENIES PAIN. TOLERATING A CONS CARB, SOFT AND BITE SIZE DIET WITH THIN LIQUIDS. TAKES MULTIPLE PILLS AT ONE TIME WITH FLUIDS. X1 ASSIST TO BR. VOIDING ADEQUATE AMOUNTS OF YELLOW URINE IN URINAL. NO BM THIS SHIFT. BED IN LOWEST POSITION, CALL LIGHT WITHIN REACH. CALLS APPROPRIATELY AND IS ABLE TO ADVOCATE NEEDS EFFECTIVELY. BED ALARM SET FOR PT'S SAFETY.
[2025-03-17] MEDS ORDERED: Atorvastatin 40 MG Tab PO SCH (09:00)
[2025-03-17] MEDS ORDERED: Empagliflozin 25 MG TAB PO SCH (09:00)
[2025-03-17] MEDS ORDERED: Sertraline HCl 50 MG Tab PO SCH (09:00)
[2025-03-17] MEDS ORDERED: Tamsulosin HCl 0.4 MG Cap PO SCH (09:00)
[2025-03-17] MEDS ORDERED: Finasteride 5 MG Tab PO SCH (09:00)
[2025-03-17] MEDS ORDERED: Aspirin 81 MG Chew PO SCH (09:00)
[2025-03-17] MEDS ORDERED: FINASTERIDE1 MG PO (09:59)
[2025-03-17] MEDS ORDERED: HYDR1TAB94 PO (10:02)
[2025-03-17] MEDS ORDERED: Potassium Chloride 20 MEQ TabCR PO ONE (11:00)
[2025-03-17] MEDS ORDERED: Omeprazole 20 MG CapCR PO PRN (14:20)
[2025-03-17] MEDS ORDERED: Tiotropium Bromide 2.5 MCG/ACT MIST INHAL (10 ACT/4 GM) INH SCH (14:30)
--- NOTE | 2025-03-17 17:45 | NUR ---
SHIFT SUMMARY: PT A&OX4 CALM AND COOPERATIVE BUT REPORTS FEELING FATIGUED. MAINTAINING >94% ON RA. SHIFT NIH SCORE OF 2. AFIB 50S-60S AND SBP 160S-180S. 1 PERSON ASSIST TO BATHROOM. TOLERATING CONSISTENT CARB DIET. ECHO COMPLETED TODAY. ORTHOSTATIC VITALS TO BE COMPLETED EVERY AM STARTING TOMORROW. MED REC COMPLETED. BED IS LOW AND LOCKED WITH CALL LIGHT WITHIN REACH.
[2025-03-17] MEDS ORDERED: Lisinopril 20 MG Tab PO SCH (21:00)
[2025-03-17] MEDS ORDERED: Metoprolol Succinate 25 MG TABCR PO SCH (21:00)
[2025-03-18] MEDS ORDERED: Acetaminophen 325 MG TABLET PO PRN (00:55)
[2025-03-18 01:36] LABS: U Amphetamine Screen Not Detected; U Barbituate Screen Not Detected; U Benzodiazapine Screen Not Detected; U Buprenorphine Screen Not Detected; U Cannabinoids Screen DETECTED; U Cocaine Screen Not Detected; U Methadone Screen Not Detected; U Methamphetamine Screen Not Detected; U Opiates Screen Not Detected; U Oxycodone Screen Not Detected; U Phencyclidine Screen Not Detected
[2025-03-18 04:19] VITALS: BP 176/86
[2025-03-18 04:55] LABS: Anion Gap 9 mmol/L (3-11); Blood Urea Nitrogen 16 mg/dL (8-24); CHOL/HDL RATIO 3.2; CO2, Blood 29 mmol/L (21-32); Chloride, Blood 103 mmol/L (98-108); Cholesterol 129 mg/dL (50-200); Creatinine, Blood 1.07 mg/dL (0.60-1.20); Glomerular Filtration Rate 71 (60-); Glucose, Blood 129 mg/dL (70-99); HDL Cholesterol 40 mg/dL (>39); LDL/HDL RATIO 1.8; Low Density Lipoprotein Chol 71 mg/dL (0-110); Potassium, Blood 3.6 mmol/L (3.5-5.5); Sodium, Blood 137 mmol/L (136-145); Triglycerides 92 mg/dL (30-160); Very Low Density Lipoprot Chol 18 mg/dL (6-32)
--- NOTE | 2025-03-18 06:47 | NUR ---
SHIFT SUMMARY: PT IS A&OX4, PLEASANT AND APPRECIATIVE OF CARE. HTN, SYS >170, ON RA. A-FIB/AFLUTTER 50'S-60'S. NO NEURO CHANGES THIS SHIFT. PT DID C/O A MD MARTINE CALLED TO GET SOME TYLENOL. TOLERATING A CONS CARB DIET. X1 ASSIST TO BR. VOIDING ADEQUATE AMOUNTS OF YELLOW URINE IN URINAL. UA SENT. PT HAS URGENCY WITH URINATION, PULL UP IN PLACE AND CHANGED NEEDED. NO BM THIS SHIFT. BED IN LOWEST POSITION, CALL LIGHT WITHIN REACH. CALLS APPROPRIATELY AND IS ABLE TO ADVOCATE NEEDS EFFECTIVELY. BED ALARM SET FOR PT'S SAFETY.
[2025-03-18 07:15] VITALS: BP 152/78
[2025-03-18] MEDS ORDERED: HydroCHLOROthiazide 25 mg Tab PO SCH (09:00)
[2025-03-18] MEDS ORDERED: Potassium Chloride 10 Meq Tablet SA PO SCH (09:00)
[2025-03-18] MEDS ORDERED: dilTIAZem HCL 240 MG CAP.CD PO SCH (09:00)
[2025-03-18 12:10] VITALS: BP 132/63
--- NOTE | 2025-03-18 14:35 | NUR ---
SHIFT SUMMARY: PT A&OX4 CALM AND COOPERATIVE. PT WAS FATIGUED IN MORNING BUT REPORTED PT NORMALLY WAKES UP EARLY AND GOES BACK TO SLEEP LATE MORNING. MAINTAINED >92% ON RA. AFIB 60S-70S. SBP >130 AND REMAINED IN RANGE FOR PERMISSIVE SBP GOAL OF 110-200. PT RECOMMENDED DISCHARGE WITH HOME HEALTH. PT TOLERATED CC DIET. PT SBA IN ROOM. PT EDUCATED ON DISCHARGE WITH AT BEDSIDE. REMOVED PIV. PT TOLERATED WELL. DISCHARGED COMPLETE WITH FWW GOING HOME WITH PT AND DROVE HIM HOME.
== END 2025-03-18 14:28 | disposition home or self-care (01) ==
LOC: ER 11:01 → PCU 11:02 → MEDS 11:02 → PCU 16:51
PROVIDERS: Family Medicine; Physician Assistant; ADMIT Internal Medicine
DX: I63.9 Cerebral infarction, unspecified (principal); I65.22 Occlusion and stenosis of left carotid artery; F12.929 Cannabis use, unspecified with intoxication, unspecified; J45.909 Unspecified asthma, uncomplicated; E11.40 Type 2 diabetes mellitus with diabetic neuropathy, unspecified; E78.5 Hyperlipidemia, unspecified; J44.9 Chronic obstructive pulmonary disease, unspecified; K21.9 Gastro-esophageal reflux disease without esophagitis; G47.33 Obstructive sleep apnea (adult) (pediatric); Z99.89 Dependence on other enabling machines and devices; I48.0 Paroxysmal atrial fibrillation; I95.1 Orthostatic hypotension; I13.0 Hypertensive heart and chronic kidney disease with heart failure and stage 1 through stage 4 chronic kidney disease, or unspecified chronic kidney disease; E11.22 Type 2 diabetes mellitus with diabetic chronic kidney disease; I50.32 Chronic diastolic (congestive) heart failure; N18.31 Chronic kidney disease, stage 3a; N40.0 Benign prostatic hyperplasia without lower urinary tract symptoms; Z79.01 Long term (current) use of anticoagulants; Z79.899 Other long term (current) drug therapy; Z79.84 Long term (current) use of oral hypoglycemic drugs; Z88.5 Allergy status to narcotic agent
CPT/HCPCS: 36415; 70450; 70496; 70498; 70551; 80048; 80053; 80061; 82947; 85025; 92526; 92610; 93005; 93010; 93306; 94640; 94664; 94760; 94762; 97112; 97116; 97161; 97165; 99285-25; A9270; G0378; Q9967